=== PATIENT | male | born 1975 | race Caucasian/White ===

== ENCOUNTER 2022-05-22 06:36 | Inpatient (IN) | payer OTHER ==
[~2022-05-22] VITALS: Ht 170.2 cm; Wt 74.8 kg
[2022-05-22 07:11] LABS: BASOPHILS % 0.3 % (0.0-1.0); EOSINOPHILS # (AUTO) 0.3 (0.0-0.4); EOSINOPHILS % 3.4 % (0.0-6.0); HEMATOCRIT 46.7 % (38.2-49.6); HEMOGLOBIN 15.6 g/dL (14.0-18.0); LYMPHOCYTES # (AUTO) 1.8 (1.0-3.2); LYMPHOCYTES % 18.9 % (18.0-39.1); MEAN CORPUSCULAR HEMOGLOBIN 34.3 pg (28-32); MEAN CORPUSCULAR HGB CONC 33.4 g/dL (31-35); MEAN CORPUSCULAR VOLUME 102.6 fL (81-99); MONOCYTES # (AUTO) 0.8 (0.2-0.8); MONOCYTES % 8.1 % (4.4-11.3); NEUTROPHILS # (AUTO) 6.7 (2.1-6.9); NEUTROPHILS % 69.1 % (38.7-80.0); PLATELET COUNT 300 x10e3/uL (140-360); RED BLOOD COUNT 4.55 x10e6/uL (4.3-5.7); RED CELL DISTRIBUTION WIDTH 11.4 % (11.7-14.4)
[2022-05-22 07:23] LABS: INR 0.88; PROTHROMBIN TIME 12.8 seconds (11.9-14.5)
[2022-05-22 07:24] LABS: PARTIAL THROMBOPLASTIN TIME 30.9 seconds (23.8-35.5)
[2022-05-22 07:32] LABS: ALANINE AMINOTRANSFERASE 27 IU/L (0-55); ALBUMIN 4.2 g/dL (3.5-5.0); ALBUMIN/GLOBULIN RATIO 1.2 (0.8-2.0); ALKALINE PHOSPHATASE 96 IU/L (40-150); ANION GAP 13.3 mmol/L (8-16); BLOOD UREA NITROGEN 9 mg/dL (7-26); BUN/CREATININE RATIO 10 (6-25); CALCIUM 9.2 mg/dL (8.4-10.2); CARBON DIOXIDE 27 mmol/L (22-29); CHLORIDE 99 mmol/L (98-107); CREATINE KINASE 124 IU/L (30-200); CREATININE, SERUM 0.88 mg/dL (0.72-1.25); GLUCOSE 102 mg/dL (74-118); MAGNESIUM 1.8 MG/DL (1.3-2.1); POTASSIUM 4.3 mmol/L (3.5-5.1); SODIUM 135 mmol/L (136-145)
[2022-05-22] MEDS ORDERED: METOPROLOL TARTRATE 25 MG TAB PO ONE (07:45)
[2022-05-22] MEDS ORDERED: ONDANSETRON HCL INJ 2MG/ML 2ML 2 MG/ML VIAL IV PRN (08:30)
[2022-05-22] MEDS ORDERED: Morphine 2mg Syringe 2 MG/ML SYR IV PRN (08:30)
[2022-05-22] MEDS ORDERED: NITROGLYCERIN 0.4 MG SUBL SL PRN (08:30)
[2022-05-22] MEDS: ASPIRIN 81 MG ENTERIC COATED PO SCH (09:00)
[2022-05-22] MEDS: FAMOTIDINE 20 MG/2 ML VIAL IV SCH ×2 (09:23→21:11)
[2022-05-22 15:23] LABS: CREATINE KINASE 146 IU/L (30-200)
[2022-05-22 15:29] VITALS: BP 133/87
[2022-05-22] MEDS ORDERED: MELOXICAM7.5 MG PO (16:06)
[2022-05-22] MEDS ORDERED: WELLBUTRIN SR100 MG PO (16:06)
[2022-05-22] MEDS ORDERED: CRESTOR10 MG PO (16:06)
[2022-05-22 19:30] VITALS: BP 140/90
[2022-05-22 20:00] VITALS: BP 135/77
[2022-05-22] MEDS ORDERED: SIMVASTATIN 40 MG TAB PO SCH (21:00)
[2022-05-23] VITALS (8 sets, daily range): BP systolic 120–156; BP diastolic 62–103
[2022-05-23 06:06] LABS: BASOPHILS # (AUTO) 0.1 (0.0-0.1); BASOPHILS % 0.7 % (0.0-1.0); EOSINOPHILS # (AUTO) 0.3 (0.0-0.4); EOSINOPHILS % 4.4 % (0.0-6.0); HEMATOCRIT 46.3 % (38.2-49.6); HEMOGLOBIN 15.9 g/dL (14.0-18.0); LYMPHOCYTES # (AUTO) 1.8 (1.0-3.2); LYMPHOCYTES % 24.3 % (18.0-39.1); MEAN CORPUSCULAR HGB CONC 34.3 g/dL (31-35); MEAN CORPUSCULAR VOLUME 99.1 fL (81-99); MONOCYTES # (AUTO) 0.7 (0.2-0.8); MONOCYTES % 8.8 % (4.4-11.3); NEUTROPHILS # (AUTO) 4.6 (2.1-6.9); NEUTROPHILS % 61.4 % (38.7-80.0); PLATELET COUNT 291 x10e3/uL (140-360); RED BLOOD COUNT 4.67 x10e6/uL (4.3-5.7); RED CELL DISTRIBUTION WIDTH 11.8 % (11.7-14.4)
[2022-05-23 06:32] LABS: CREATINE KINASE 72 IU/L (30-200)
[2022-05-23 06:33] LABS: ANION GAP 15.1 mmol/L (8-16); CALCIUM 9.3 mg/dL (8.4-10.2); CHOL/HDL RATIO 5.2 (3.9-4.7); CREATININE, SERUM 0.93 mg/dL (0.72-1.25); POTASSIUM 4.1 mmol/L (3.5-5.1)
[2022-05-23] MEDS: ASPIRIN 81 MG ENTERIC COATED PO SCH (09:33)
[2022-05-23] MEDS: NICOTINE 21 MG/EA PATCH TOP SCH (09:33)
[2022-05-23] MEDS: FAMOTIDINE 20 MG/2 ML VIAL IV SCH ×2 (09:33→22:45)
[2022-05-23] MEDS ORDERED: CLOPIDOGREL BISULFATE 75 MG TAB PO NR (10:00)
[2022-05-23 14:18] LABS: CREATINE KINASE 67 IU/L (30-200)
[2022-05-23] MEDS ORDERED: LOSARTAN POTASSIUM 100 MG TAB PO NR (15:30)
[2022-05-23] MEDS: LOSARTAN POTASSIUM 100 MG TAB PO SCH (15:39)
[2022-05-23] MEDS: METOPROLOL TARTRATE 25 MG TAB PO SCH (17:32)
[2022-05-23] MEDS: CRESTOR 10MG PO SCH (22:45)
[2022-05-23] MEDS: ENOXAPARIN INJ 80 MG/0.8 ML SYR SC SCH (22:45)
[2022-05-24] VITALS (8 sets, daily range): BP systolic 106–133; BP diastolic 70–95
[2022-05-24] MEDS: ENOXAPARIN INJ 80 MG/0.8 ML SYR SC SCH (08:37)
[2022-05-24] MEDS: ASPIRIN 81 MG ENTERIC COATED PO SCH (08:38)
[2022-05-24] MEDS: FAMOTIDINE 20 MG/2 ML VIAL IV SCH ×2 (08:38→20:19)
[2022-05-24] MEDS: CLOPIDOGREL BISULFATE 75 MG TAB PO SCH (08:38)
[2022-05-24] MEDS: LOSARTAN POTASSIUM 100 MG TAB PO SCH (08:38)
[2022-05-24] MEDS: METOPROLOL TARTRATE 25 MG TAB PO SCH ×2 (08:44→16:50)
[2022-05-24] MEDS: NICOTINE 21 MG/EA PATCH TOP SCH (08:44)
[2022-05-24] MEDS: CRESTOR 10MG PO SCH (20:19)
[2022-05-25 00:50] VITALS: BP 125/78
[2022-05-25] MEDS ORDERED: SODIUM CHLORIDE 0.9% 1000ML 1,000 ML IV SCH (05:00)
[2022-05-25 05:32] LABS: BASOPHILS # (AUTO) 0.1 (0.0-0.1); BASOPHILS % 0.8 % (0.0-1.0); EOSINOPHILS # (AUTO) 0.4 (0.0-0.4); EOSINOPHILS % 4.9 % (0.0-6.0); HEMATOCRIT 45.9 % (38.2-49.6); LYMPHOCYTES # (AUTO) 1.7 (1.0-3.2); LYMPHOCYTES % 21.9 % (18.0-39.1); MEAN CORPUSCULAR HEMOGLOBIN 34.6 pg (28-32); MEAN CORPUSCULAR HGB CONC 34.9 g/dL (31-35); MEAN CORPUSCULAR VOLUME 99.4 fL (81-99); MONOCYTES # (AUTO) 0.8 (0.2-0.8); MONOCYTES % 10.9 % (4.4-11.3); NEUTROPHILS # (AUTO) 4.7 (2.1-6.9); NEUTROPHILS % 61.1 % (38.7-80.0); PLATELET COUNT 287 x10e3/uL (140-360); RED BLOOD COUNT 4.62 x10e6/uL (4.3-5.7); RED CELL DISTRIBUTION WIDTH 11.6 % (11.7-14.4)
[2022-05-25 05:34] VITALS: BP 124/82
[2022-05-25 05:57] LABS: ALBUMIN 3.7 g/dL (3.5-5.0); ALBUMIN/GLOBULIN RATIO 1.1 (0.8-2.0); ANION GAP 14.2 mmol/L (8-16); CALCIUM 9.6 mg/dL (8.4-10.2); CREATININE, SERUM 0.94 mg/dL (0.72-1.25); MAGNESIUM 2.3 MG/DL (1.3-2.1); POTASSIUM 4.2 mmol/L (3.5-5.1)
[2022-05-25] MEDS: LOSARTAN POTASSIUM 100 MG TAB PO SCH (08:14)
[2022-05-25] MEDS: ASPIRIN 81 MG ENTERIC COATED PO SCH (08:14)
[2022-05-25] MEDS: CLOPIDOGREL BISULFATE 75 MG TAB PO SCH (08:14)
[2022-05-25] MEDS: METOPROLOL TARTRATE 25 MG TAB PO SCH (08:15)
[2022-05-25 08:16] VITALS: BP 121/81
[2022-05-25 08:35] VITALS: BP 121/81
[2022-05-25] MEDS: NICOTINE 21 MG/EA PATCH TOP SCH (09:31)
[2022-05-25] MEDS: FAMOTIDINE 20 MG/2 ML VIAL IV SCH (09:31)
[2022-05-25 11:27] VITALS: BP 123/69
== END 2022-05-25 12:20 | disposition short-term general hospital (02) | DRG 311 ==
LOC: ER 06:51 → ERHOLD 08:35 → MED/SURG3 15:34 → OBSVTOIN 05-24 14:34
PROVIDERS: ADMIT Family Medicine; ATTEND Family Medicine
DX: I20.0 Unstable angina (principal); F17.210 Nicotine dependence, cigarettes, uncomplicated; E78.5 Hyperlipidemia, unspecified; Z82.49 Family history of ischemic heart disease and other diseases of the circulatory system; Z20.822 Contact with and (suspected) exposure to COVID-19; R07.9 Chest pain, unspecified; J44.9 Chronic obstructive pulmonary disease, unspecified
CPT/HCPCS: 0223U; 36415; 71045; 80048; 80053; 80061; 82550; 82553; 83735; 83880; 84484; 85025; 85379; 85610; 85730; 93005; 93306; 94799; 96361; 99284; G0378; J1650; J7030